=== PATIENT | male | born 1995 | race African-American/Black ===

== ENCOUNTER 2020-01-10 17:23 | Inpatient (IN) | payer MEDICAID, OTHER, SELFPAY ==
[~2020-01-10 17:23] MED LIST: Iopamidol-370 76% 500 ML 1 ML ONE
[2020-01-10] MEDS ORDERED: Adacel (T-DAP) 0.5 ML SYRINGE ONE (17:27)
[2020-01-10 17:39] LABS: #Basophils 0.1 thou/uL (0.0-0.2); #Eosinphils 0.1 thou/uL (0.0-0.7); #Lymphocytes 2.2 thou/uL (1.20-3.40); #Monocytes 0.4 thou/uL (0.11-0.59); #Neutrophils 9.9 thou/uL (1.40-6.50); %Basophils 1.1 % (0.0-1.0); %Eosinophils 0.6 % (0.0-10.0); %Lymphocytes 17.5 % (21.0-51.0); %Monocytes 3.3 % (0.0-10.0); %Neutrophils 77.6 % (42.0-75.0); Hemoglobin 16.1 g/dL (14.0-18.0); Mean Corpuscular HGB CONC 33.6 g/dL (32.0-36.0); Mean Corpuscular Hemoglobin 30.2 pg (27.0-31.0); Mean Corpuscular Volume 89.9 fL (78.0-98.0); Mean Platelet Volume 10.4 fL (7.4-10.4); Platelet Count 179 thou/uL (130-400); RBC Distribution Width 11.3 % (11.5-14.5); Red Blood Cell (RBC) Count 5.34 mill/uL (4.70-6.10); White Blood Cell (WBC) Count 12.7 thou/uL (4.8-10.8)
[2020-01-10] MEDS ORDERED: Fentanyl 100 MCG/2 ML VIAL ONE ×2 (17:39→17:53)
--- NOTE | 2020-01-10 17:40 | RAD ---
XR Chest 1 View Portable HISTORY: Respiratory failure COMPARISON: None FINDINGS: The heart size is normal. There is an endotracheal tube with tip at the level of the clavic ular heads. A nasogastric tube can be traced into the stomach with tip excluded from the film. The lungs are well expanded without focal areas of consolidation, pneumothorax or pleural effusions.
[2020-01-10 17:45] LABS: INR-International Normal Ratio 1.1; Prothrombin Time 13.7 sec (12.0-14.7)
[2020-01-10] MEDS ORDERED: fentaNYL Citrate/PF 2,000 MCG in Sodium Chloride 0.9% 60 ML IV SCH (17:47)
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
[2020-01-10 18:01] LABS: ALT (SGPT) 12 U/L (8-55); AST (SGOT) 30 U/L (5-34); Albumin 4.6 g/dL (3.5-5.0); Alkaline Phosphatase 73 U/L (40-110); Anion Gap 18 mmol/L (10-20); BUN (Urea Nitrogen) 11 mg/dL (8.9-20.6); Bilirubin, Total 0.4 mg/dL (0.2-1.2); Calc. Creatinine Clearance 0 mL/min (70-130); Calcium 9.7 mg/dL (7.8-10.44); Carbon Dioxide 20 mmol/L (22-29); Chloride 104 mmol/L (98-107); Estimated GFR-MDRD 75; Globulin 3.3 g/dL (2.4-3.5); Glucose 155 mg/dL (70-105); Lipase 32 U/L (8-78); Potassium 3.5 mmol/L (3.5-5.1); Protein, Total 7.9 g/dL (6.0-8.3); Sodium 138 mmol/L (136-145)
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
[2020-01-10 18:21] LABS: Acetaminophen Less than 6.0 mcg/mL (10.0-30.0); Alcohol Less than 10 mg/dL (Less than 10); Salicylate Less than 8.0 mg/dL (15.0-30.0)
--- NOTE | 2020-01-10 18:25 | CT ---
CT CHEST WITH IV CONTRAST CT ABDOMEN WITH IV CONTRAST CT PELVIS WITH IV CONTRAST CORONAL AND SAGITTAL REFORMATIONS OF THE THORACIC AND LUMBAR SPINE: 01/10/20 HISTORY: No mediastinal hematoma or intimal flap in the aorta is seen to suggest transection. There are endotr acheal and nasogastric tubes. No pneumothoraces, pulmonary contusions, pleural or pericardial effusio ns are seen. The liver, spleen, pancreas, adrenal gland and kidneys are intact. The gallbladder appears intact. Th ere is a Granados catheter within the urinary bladder with air in the urinary bladder likely from instru mentation. No free air or free fluid is seen in the abdomen or pelvis. No compression fracture in the thoracolumbar spine or subluxation is seen. There are age indeterminat e fractures of the transverse processes of L1. These could also represent developmental anomalies. IMPRESSION: 1. No CT evidence of acute intrathoracic or solid organ injury. 2. Age indeterminate fractures versus developmental anomalies of the bilateral transverse proces ses of L1. Discussed over the telephone with ER physician, Dr. Tim Rivera at 6:09 p.m. POS: OFF
[2020-01-10 18:27] LABS: Bilirubin Negative (Negative); Blood, Urine 3+ (Negative); Clarity Turbid (Clear); Glucose, Urine (Dipstick) Normal (Negative); Ketone, Urine Trace mg/dL (Negative); Leukocyte Negative Leu/uL (Negative); Nitrite Negative (Negative); Protein, Urine (Dipstick) 300 mg/dL (Neg-Trace); Squamous Epithelial 0-3 HPF (0-3); Urobilinogen Normal mg/dL (Less than 2); pH, Urine 5.5 (5.0-9.0)
[2020-01-10] MEDS ORDERED: Propofol 1,000 MG/100 ML VIAL IV ONE (18:28)
[2020-01-10 18:32] LABS: Amphetamine Not Detected (NotDetected); Barbiturates Screen Not Detected (NotDetected); Benzodiazepine Screen Not Detected (NotDetected); Cocaine Metabolite Screen Not Detected (NotDetected); Medtox Control Line Valid? VALID (VALID); Medtox Reader # READER 4; Methadone Not Detected (NotDetected); Methamphetamine Not Detected (NotDetected); Opiate Screen Not Detected (NotDetected); Oxycodone Screen Not Detected (NotDetected); Phencyclidine (PCP) Not Detected (NotDetected); THC/Cannabinoid Screen Detected (NotDetected); Tricyclic Screen Not Detected (NotDetected)
[2020-01-10 18:33] LABS: Actual Bicarbonate (HCO3a) 21.5 mEq/L (22-28); Analyzer IN Cardio ER; Base Excess (BEa) -3.2 mEq/L (-2.0 to +3.0); CO2 Tension 37.7 mmHg (35.0-45.0); Calcium, Ionized (arterial) 1.16 mmol/L (1.12-1.30); Carboxyhemoglobin (COHb) 0.8 gm% (0.0-3.0); Hemoglobin (Hb) 14.4 g/dL (14.0-18.0); O2 Tension (PaO2), arterial 112.8 mmHg (80.0-100.0); Potassium - ABG Lab 3.57 mmol/L (3.70-5.30); pH, Arterial 7.37 (7.35-7.45)
[2020-01-10 18:36] LABS: ALV-art Gradient 125.275 (0-20); Puncture Site R RADIAL
[2020-01-10 18:38] LABS: Bacteria/HPF None Seen HPF (None Seen)
[2020-01-10 18:39] LABS: Sperm/HPF Rare HPF (None Seen)
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
[2020-01-10] MEDS ORDERED: Lorazepam 2 MG/ML VIAL ONE ×2 (19:38→20:07)
[2020-01-10] MEDS ORDERED: Morphine 2 MG/ML SYRINGE ONE (20:09)
[2020-01-10] MEDS ORDERED: Ondansetron ODT 4 MG TAB PO PRN (20:42)
[2020-01-10] MEDS ORDERED: Ondansetron PF 4 MG/2 ML Vial IVP PRN (20:42)
[2020-01-10] MEDS ORDERED: Dextrose 50% Abboject 50 ML SYRINGE SLOW IVP PRN (20:42)
[2020-01-10] MEDS ORDERED: hydrALAZINE 20 MG/ML VIAL SLOW IVP PRN (20:42)
[2020-01-10] MEDS ORDERED: Ventilator Sedation Protocol 1 EACH FS SCH (20:42)
[2020-01-10] MEDS ORDERED: Dextrose 5% in Water 1,000 ML IV PRN (20:42)
[2020-01-10 20:47] LABS: Lactic Acid 3.8 mmol/L (0.5-2.2)
[2020-01-10] MEDS ORDERED: Fentanyl BOLUS 250 ML IVPB PRN (20:59)
[2020-01-10] MEDS ORDERED: Lorazepam 2 MG/ML VIAL SLOW IVP PRN (20:59)
[2020-01-10] MEDS ORDERED: DISCONTINUE PREVIOUS NARCOTIC PAIN MEDICATIONS AND BENZODIAZEPINES FS SCH (20:59)
[2020-01-10] MEDS ORDERED: Propofol BOLUS 1,000 MG/100 ML VIAL IV PRN (20:59)
[2020-01-10 21:17] VITALS: BMI 23.5
[2020-01-10] MEDS: Sodium Chloride 0.9% 1,000 ML IV SCH (21:59)
[2020-01-10] MEDS: Famotidine/PF 20 mg/2ml Vial SLOW IVP SCH (22:23)
[2020-01-10 23:17] LABS: Lactic Acid 3.7 mmol/L (0.5-2.2)
[2020-01-11] MEDS: Propofol 1,000 MG/100 ML VIAL IV PRN ×2 (00:04→07:47)
[2020-01-11 03:34] LABS: #Basophils 0.1 thou/uL (0.0-0.2); #Lymphocytes 2.6 thou/uL (1.20-3.40); #Monocytes 0.8 thou/uL (0.11-0.59); #Neutrophils 8.4 thou/uL (1.40-6.50); %Basophils 0.6 % (0.0-1.0); %Eosinophils 0.2 % (0.0-10.0); %Lymphocytes 21.8 % (21.0-51.0); %Monocytes 6.5 % (0.0-10.0); %Neutrophils 70.9 % (42.0-75.0); Hemoglobin 13.4 g/dL (14.0-18.0); Mean Corpuscular HGB CONC 34.7 g/dL (32.0-36.0); Mean Corpuscular Hemoglobin 30.9 pg (27.0-31.0); Mean Corpuscular Volume 89.1 fL (78.0-98.0); Mean Platelet Volume 11.4 fL (7.4-10.4); Platelet Count 150 thou/uL (130-400); RBC Distribution Width 11.5 % (11.5-14.5); Red Blood Cell (RBC) Count 4.34 mill/uL (4.70-6.10); White Blood Cell (WBC) Count 11.8 thou/uL (4.8-10.8)
[2020-01-11 03:54] LABS: Anion Gap 10 mmol/L (10-20); BUN (Urea Nitrogen) 11 mg/dL (8.9-20.6); Calc. Creatinine Clearance 99 mL/min (70-130); Calcium 8.3 mg/dL (7.8-10.44); Carbon Dioxide 22 mmol/L (22-29); Chloride 111 mmol/L (98-107); Estimated GFR-MDRD Greater than 90; Glucose 96 mg/dL (70-105); Magnesium 1.8 mg/dL (1.6-2.6); Phosphorus 2.2 mg/dL (2.3-4.7); Sodium 139 mmol/L (136-145)
[2020-01-11] MEDS: Sodium Chloride 0.9% 1,000 ML IV SCH ×3 (04:43→23:00)
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
[2020-01-11 06:53] LABS: Actual Bicarbonate (HCO3a) 19.7 mEq/L (22-28); Base Excess (BEa) -4.1 mEq/L (-2.0 to +3.0); CO2 Tension 32.6 mmHg (35.0-45.0); Calcium, Ionized (arterial) 1.14 mmol/L (1.12-1.30); Carboxyhemoglobin (COHb) 0.1 gm% (0.0-3.0); Hemoglobin (Hb) 13.5 g/dL (14.0-18.0); O2 Tension (PaO2), arterial 151.1 mmHg (80.0-100.0); Potassium - ABG Lab 3.94 mmol/L (3.70-5.30)
--- NOTE | 2020-01-11 06:56 | RAD ---
CHEST ONE VIEW: INDICATIONS: History of respiratory failure. COMPARISON: Prior exam dated 01/10/2020. IMPRESSION: Since the comparison examination the lungs remain clear. Endotracheal tube and gastric catheter are u nchanged. No pleural effusion or pneumothorax is evident. Heart size is within normal limits. POS: BH
[2020-01-11 07:15] LABS: Puncture Site RBRACH
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
[2020-01-11] MEDS: Morphine 2 MG/ML VIAL SLOW IVP PRN ×5 (08:26→11:12)
[2020-01-11] MEDS ORDERED: Morphine 4 MG/ML VIAL SLOW IVP SCH ×2 (08:45→10:00)
[2020-01-11] MEDS: Famotidine/PF 20 mg/2ml Vial SLOW IVP SCH ×2 (08:57→20:05)
[2020-01-11] MEDS ORDERED: Ibuprofen 600 MG TAB PO PRN (09:51)
[2020-01-11] MEDS ORDERED: traMADol HCl 50 MG TAB PO PRN (09:51)
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
[2020-01-11] MEDS ORDERED: Ketorolac Tromethamine 30 MG/ML VIAL IVP SCH (10:00)
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
[2020-01-11] MEDS: Acetaminophen 325 MG TAB PO SCH ×3 (11:13→23:40)
[2020-01-11 12:06] LABS: SARS-CoV-2 MS2 Positive; SARS-CoV-2 N Gene Negative; SARS-CoV-2 S Gene Negative; SARS-CoV-2 by NAA Not Detected (NotDetected); SARS-CoV-2 orf1ab Negative
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
[2020-01-11] MEDS ORDERED: Melatonin 3 MG TAB PO SCH (23:15)
[2020-01-12] MEDS: Acetaminophen 325 MG TAB PO SCH ×3 (05:41→17:41)
[2020-01-12] MEDS: Sodium Chloride 0.9% 1,000 ML IV SCH ×3 (07:35→23:16)
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
[2020-01-12] MEDS: traMADol HCl 50 MG TAB PO PRN (15:44)
[2020-01-13] MEDS: Acetaminophen 325 MG TAB PO SCH ×5 (01:21→23:29)
[2020-01-13] MEDS: Melatonin 3 MG TAB PO SCH ×2 (01:21→19:45)
[2020-01-13] MEDS ORDERED: Bacitracin Zinc Ointment 30 gm TUBE ONE (06:19)
[2020-01-13] MEDS ORDERED: Bupivacaine PF 0.5% 30 ML VIAL ONE (06:19)
[2020-01-13] MEDS ORDERED: Sodium Chloride 0.9% 10 ML ONE (06:19)
[2020-01-13] MEDS: Sodium Chloride 0.9% 1,000 ML IV SCH (06:22)
[2020-01-13] MEDS ORDERED: Fentanyl 100 MCG/2 ML VIAL ONE ×2 (06:25→06:27)
[2020-01-13] MEDS ORDERED: Midazolam HCl 2 mg/2 ml Vial ONE ×2 (06:25→06:27)
[2020-01-13] MEDS ORDERED: Ketorolac Tromethamine 30 MG/ML VIAL ONE (10:33)
[2020-01-13] MEDS ORDERED: Ondansetron PF 4 MG/2 ML Vial ONE (10:33)
[2020-01-13] MEDS ORDERED: Lidocaine 1% PF 5 ML VIAL ONE (10:33)
[2020-01-13] MEDS ORDERED: PROPOFOL 200 MG/20 ML VIAL ONE (10:33)
[2020-01-13] MEDS ORDERED: Glycopyrrolate 0.2 MG/ML 5 ML SYRINGE ONE (10:33)
[2020-01-13] MEDS ORDERED: Dexamethasone 20 MG/5 ML VIAL ONE (10:33)
[2020-01-13] MEDS ORDERED: Rocuronium Bromide 10 MG/ML (10ML VIAL) ONE (10:33)
[2020-01-13] MEDS ORDERED: Bupivacaine HCl 0.5%/Epinephrine 1:200,000/PF 30 ml Vial ONE (10:35)
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
--- NOTE | 2020-01-13 20:53 | RAD ---
RIGHT WRIST 3 VIEWS: Date: 01/13/2020 HISTORY: Open reduction and internal fixation right wrist. FINDINGS: Multiple internal fixation screws and pins are in place, stabilizing the scaphoid, triquetrum, distal radius, and capitate lunate region. Improvement in position and alignment from the prior CT. IMPRESSION: Status post open reduction and internal fixation right wrist. POS: AH
[2020-01-13] MEDS ORDERED: Enoxaparin Sodium 40 MG/0.4 ML SYRINGE SC SCH (21:00)
--- NOTE | 2020-01-14 00:26 | PRG ---
DATE OF SERVICE: 01/13/2020 SUBJECTIVE: Patient was seen during evening rounds, resting comfortably, in no acute distress. The patient is postop day zero, status post fixation of his right hand fractures by Dr. Perez. OBJECTIVE: Vital signs are stable and the patient remains afebrile. LABORATORY DATA: Urinary output is adequate for patient's age and weight. PLAN: Continue supportive care and pain regimen. Increase activity per physical and occupational therapy. The patient has been instructed to ambulate frequently. The patient will likely be discharged home tomorrow. Job ID: [id number]
[2020-01-14] MEDS: Cyclobenzaprine 10 MG TAB PO PRN ×2 (02:56→11:24)
[2020-01-14] MEDS: Acetaminophen 325 MG TAB PO SCH ×2 (05:43→11:24)
[2020-01-14] MEDS: traMADol HCl 50 MG TAB PO PRN (05:43)
[2020-01-14 09:51] VITALS: BP 131/78; TEMP 97.9
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
--- NOTE | 2020-01-15 12:26 | OP ---
DATE OF PROCEDURE: 01/13/2020 PREOPERATIVE DIAGNOSES: 1. Right scaphoid fracture/transscaphoid perilunate dislocation with the following associated fractures. a. Scaphoid waist fracture with 4 significant comminuted pieces. b. Scapholunate ligament intact. c. Dorsal intra-articular distal radius fracture. d. Lunate, capitate, chondral and radial scapholunate ligament tear. e. Lunate triquetral ligament tear. f. Triquetral fracture. PROCEDURE PERFORMED: 1. Open reduction and internal fixation of distal radius fracture. 2. Open reduction and internal fixation of scaphoid fracture, multiple parts. 3. Open reduction and internal fixation of triquetrum fracture. 4. Medial triquetrum ligament repair, open. 5. Scaphoid capitate and radius scapholunate ligament tear, open. 6. Pinning of the capitate joint. OPERATIVE INDICATIONS: Because of fracture dislocation, intra-articular fracture separation and subluxed wrist joints. DESCRIPTION OF PROCEDURE: After successful general endotracheal anesthesia, limb prepped and draped, the patient then underwent spinal anesthesia. We outlined a zigzag incision beginning in line with the ring finger coursing all way over radially to the index finger and back towards the triangular fibrocartilage and then down the center of the radial distal ulnar joint. This was carried through skin with tourniquet inflated to 250 mmHg pressure after exsanguination of the limb, this was carried through skin and subcutaneous tissue, identified the retinaculum. We opened the retinaculum into three, four openings, exposed both compartments including the Shaila's tubercle and here we saw an avulsion fracture that was almost 2 cm wide by 3 mm thick at its thickest and was still attached to soft tissue, but remained in this position. We then visualized the wrist joint capsule and saw it had multiple rents and tears and so we best fit our octagonal shaped opening leaving it still ulnarly based. We then visualized the scaphoid fracture, which was in 4 parts. The proximal 1/3rd was from distal 2/3rd, but right where there was separation, there was a radial side avulsion fragment with soft tissue tags still stuck down towards the radial styloid and distally there was ulnar side avulsion fracture also displaced. We also visualized the radial scapholunate ligament tear, and radioscaphocapitate ligament tear, them from the capitate and then finally there was a scapholunate triquetral ligament tear with a 2-part midbody triquetrum fracture. We irrigated the area, debrided the hematoma, began repair first with the scaphoid fracture. The fracture lines were best fit, held reduced nearly anatomically via clinical visualization and using 2 wires, one of which was a guidewire for the 2-4-3-0 cannulated screw set. We chose the 3-4 cannulated screw set, and a 24 screw, which we compressed and put it in a compression mode using a drill measure technique. This was done by hand. We had excellent compression of almost 1.5 mm deep. It was anatomic in frontal sagittal plane, so we then put the osteochondral pieces with a ligament attached in position and held in with 2 wires on the radial side and 1 on the ulnar side. Now that this was done, we reduced the scaphocapitate joint and held this with a wire. We then built to this construct the ulnotriquetral ligament, this was done with one anchor. Once we had performed the ORIF of the lunate triquetral ligament using 3-0 cannulated screws, we then put a trough in the bone, looked at the lunate triquetral ligament still attached to the lunate and then buried it into the radial edge of the triquetrum and held this with appropriate knot and FiberWire and we had excellent apposition. We did not pin through the fracture of the triquetrum. The joint was in excellent position. At this point, we then removed hematoma from the radius fracture, placed the distal 1/3rd fracture that was flat, only 3 mm deep in any one spot back into its bony bed using 2 cross K-wires. C-arm radiographs confirmed everything was anatomic, and then we prepared for closure. First, we used a running 3-0 Prolene to repair the capsule and this was done in excellent fashion. Next, to repair the retinaculum for the 3,4 compartments, we then used a 0 Vicryl [id number] in combination with 2-0 Vicryl [id number]. Now released tourniquet, obtained hemostasis. We closed the subcutaneous tissue with a running 4-0 Monocryl and the skin with interrupted 4-0 nylon simple pattern. The patient left the operating room without evidence of anesthetic or operative complication. Job ID: [id number]
--- NOTE | 2020-01-17 15:26 | EKG ---
Test Reason : Blood Pressure : / mmHG Vent. Rate : 051 BPM Atrial Rate : 051 BPM P-R Int : 168 ms QRS Dur : 078 ms QT Int : 368 ms P-R-T Axes : 045 075 069 degrees QTc Int : 339 ms Sinus bradycardia RSR' or QR pattern in V1 suggests right ventricular conduction delay Nonspecific ST abnormality Abnormal ECG Confirmed by ALFONSO VÁZQUEZ, RYAN ([id number]), graphics editor DONNA RENAE ([id number]) on 01/17/2020 3:25:53 PM Referred By: Confirmed By:RYAN HAMILTON MD
== END 2020-01-14 11:39 | disposition home or self-care (01) | DRG 500 ==
LOC: ERS 17:23 → CCU 18:25 → SURG A 01-11 17:54
PROVIDERS: ADMIT Specialist; ATTEND Specialist
PROC: 5A1945Z Respiratory Ventilation, 24-96 Consecutive Hours (ICD-10-PCS; 2020-01-10)
PROC: 0PSMXZZ Reposition Right Carpal, External Approach (ICD-10-PCS; principal; 2020-01-11)
PROC: 0MQ50ZZ Repair Right Wrist Bursa and Ligament, Open Approach (ICD-10-PCS; 2020-01-13)
PROC: 0PSH04Z Reposition Right Radius with Internal Fixation Device, Open Approach (ICD-10-PCS; 2020-01-13)
PROC: 0PSM04Z Reposition Right Carpal with Internal Fixation Device, Open Approach (ICD-10-PCS; 2020-01-13)
DX: S62.031A Displaced fracture of proximal third of navicular [scaphoid] bone of right wrist, initial encounter for closed fracture (principal); J96.00 Acute respiratory failure, unspecified whether with hypoxia or hypercapnia; S52.501A Unspecified fracture of the lower end of right radius, initial encounter for closed fracture; S06.9X9A Unspecified intracranial injury with loss of consciousness of unspecified duration, initial encounter; N17.9 Acute kidney failure, unspecified; S20.319A Abrasion of unspecified front wall of thorax, initial encounter; S63.511A Sprain of carpal joint of right wrist, initial encounter; R40.2421 Glasgow coma scale score 9-12, in the field [EMT or ambulance]; S62.111A Displaced fracture of triquetrum [cuneiform] bone, right wrist, initial encounter for closed fracture; S63.094A Other dislocation of right wrist and hand, initial encounter; V86.99XA Unspecified occupant of other special all-terrain or other off-road motor vehicle injured in nontraffic accident, initial encounter
CPT/HCPCS: 36415; 51702; 70450; 70498; 71045; 71260; 72125; 72170; 74177; 76000; 80048; 80053; 80306; 80307; 81003; 81015; 82805; 83605; 83690; 83735; 84100; 84146; 85025; 85610; 85730; 86850; 86900; 86901; 87635; 90471; 90715; 93005; 94002; 94003; 94760; 96361; 96365; 96366; 96368; 96375; 96376; 99292; C1713; G0390; J0670; J0690; J1100; J1885; J2060; J2250; J2270; J2405; J2704; J3010; J3490; Q0162; Q9967; S0020; S0028; U0003